=== PATIENT | male | born 1955 | race Caucasian/White ===

== ENCOUNTER 2020-09-02 07:53 | Emergency (ER) | payer MEDICARE ==
[2020-09-02] MEDS: Ketorolac 30 MG/ML SDV IVPUSH ONE (09:32)
[2020-09-02] MEDS: Ketorolac 30 MG/ML SDV ONE (09:33)
[2020-09-02] MEDS: Sodium Chloride 0.9% 1,000 ML IV SCH (09:36)
[2020-09-02] MEDS: Meropenem 500 MG in Sodium Chloride 0.9% 100 ML IV SCH (09:47)
[2020-09-02] MEDS: Sulfamethoxazole/Trimethoprim 800-160 MG Tab PO ONE (10:53)
--- NOTE | 2020-09-02 11:03 | EDM.PDOC ---
ED HPI GENERAL MEDICAL PROBLEM - General Chief Complaint: Skin Complaint Stated Complaint: ABCESS ON BUTTOCK Time Seen by Provider: 09/02/20 09:20 Source of Information: Reports: Patient History Limitations: Reports: No Limitations - History of Present Illness INITIAL COMMENTS - FREE TEXT/NARRATIVE: Mr. Guerrero is here for exacerbation of chronic perianal abscess. He has met with a general surgeon and plans to have it treated soon. He has medical history of HTN. He has taken some Advil at home for his symptoms. Skin is clean and dry with erythema. Area feels firm and non fluctuant. He no has no Fever, No N or V or D. No abdominal pain. Lungs are CTA, normal HRR. 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: NSAIDS Right Buttock Pain Score (Numeric/FACES): 4 - Related Data Allergies Allergy/AdvReac Type Severity Reaction Status Date / Time No Known Allergies Allergy Verified 09/02/20 08:37 Home Meds: Home Meds amLODIPine Besylate [Norvasc] 10 mg PO DAILY 09/02/20 [History] Past Medical History Cardiovascular History: Reports: Hypertension Social & Family History - Tobacco Use Years of Tobacco use: 45 Packs/Tins Daily: 1 - Caffeine Use Caffeine Use: Reports: Coffee - Recreational Drug Use Recreational Drug Use: No ED ROS GENERAL - Review of Systems Review Of Systems: Comprehensive ROS is negative, except as noted in HPI. Skin: Reports: Dryness, Erythema, Change in Color, Lesions ED EXAM, GENERAL - Physical Exam Exam: See Below Exam Limited By: No Limitations General Appearance: Alert, Mild Distress Eye Exam: Bilateral Eye: PERRL Nose: Normal Inspection, Normal Mucosa, No Blood Throat/Mouth: Normal Inspection, Normal Teeth Head: Atraumatic, Normocephalic Neck: Normal Inspection, Supple, Non-Tender Respiratory/Chest: No Respiratory Distress, Lungs Clear Cardiovascular: Normal Peripheral Pulses, Regular Rate, Rhythm, No Edema Peripheral Pulses: 2+: Radial (L), Radial (R) GI/Abdominal: Normal Bowel Sounds, Soft, Non-Tender (Male) Exam: No Hernia Back Exam: Normal Inspection, Full Range of Motion Extremities: Normal Inspection, Normal Range of Motion Neurological: Alert, Oriented, CN II-XII Intact Psychiatric: Normal Affect, Normal Mood Skin Exam: Warm, Dry, Erythema, Wound/Incision (abscess) Lymphatic: Other (neck feels full no distinct adenopathy) Course - Vital Signs Last Recorded V/S: Last Vital Signs Temp 37.0 C 09/02/20 10:18 Pulse 67 09/02/20 10:18 Resp 18 09/02/20 10:18 BP 130/90 09/02/20 10:18 Pulse Ox 98 09/02/20 10:18 - Orders/Labs/Meds Labs: Laboratory Tests 09/02/20 09/02/20 09/02/20 Range/Units 08:48 08:48 09:00 WBC 14.6 H (4.0-11.0) K/uL RBC 4.91 (4.50-6.50) M/uL Hgb 14.9 (13.0-18.0) g/dL Hct 43.7 (40.0-54.0) % MCV 89 (76-96) fL MCH 30.3 (27.0-32.0) pg MCHC 34.1 (31.0-35.0) g/dL RDW 13.9 (11.0-16.0) % Plt Count 183 (150-400) K/uL MPV 9.8 (6.0-10.0) fL Neut % (Auto) 75.3 H (45.0-70.0) % Lymph % (Auto) 12.9 L (20.0-40.0) % [place] % (Auto) 10.3 H (3.0-10.0) % Eos % (Auto) 1.3 (1.0-5.0) % Baso % (Auto) 0.2 (0.0-0.5) % Neut # (Auto) 10.96 H (2.00-7.50) K/uL Lymph # (Auto) 1.88 (1.50-4.00) K/uL [place] # (Auto) 1.50 H (0.20-0.80) K/uL Eos # (Auto) 0.19 (0.04-0.40) K/uL Baso # (Auto) 0.03 (0.02-0.10) K/uL D-Dimer, Quantitative (0-400) ng/mL Sodium 139 (136-145) mmol/L Potassium 3.8 (3.5-5.1) mmol/L Chloride 104 (98-107) mmol/L Carbon Dioxide 24.0 (21.0-32.0) mmol/L Anion Gap 14.8 (5.0-15.0) mmol/L BUN 16 (8-26) mg/dL Creatinine 1.17 (0.70-1.30) mg/dL Est Cr Clr Drug Dosing 73.18 mL/min Estimated GFR (MDRD) > 60 (>60) MLS/MIN BUN/Creatinine Ratio 13.7 (6-25) Glucose 103 H (74-100) mg/dL Lactic Acid 0.5 (0.4-2.0) mmol/L Calcium 8.4 L (8.5-10.1) mg/dL Total Bilirubin 0.8 (0.0-1.0) mg/dL AST 24 (15-37) U/L ALT 31 (12-78) U/L Alkaline Phosphatase 73 (46-116) U/L C-Reactive Protein (0.0-3.0) mg/L Total Protein 7.0 (6.4-8.2) g/dL Albumin 3.3 L (3.4-5.0) g/dL Globulin 3.7 (2.2-4.2) g/dL Albumin/Globulin Ratio 0.9 (0.8-2.0) 09/02/20 09/02/20 Range/Units 09:00 09:00 WBC (4.0-11.0) K/uL RBC (4.50-6.50) M/uL Hgb (13.0-18.0) g/dL Hct (40.0-54.0) % MCV (76-96) fL MCH (27.0-32.0) pg MCHC (31.0-35.0) g/dL RDW (11.0-16.0) % Plt Count (150-400) K/uL MPV (6.0-10.0) fL Neut % (Auto) (45.0-70.0) % Lymph % (Auto) (20.0-40.0) % [place] % (Auto) (3.0-10.0) % Eos % (Auto) (1.0-5.0) % Baso % (Auto) (0.0-0.5) % Neut # (Auto) (2.00-7.50) K/uL Lymph # (Auto) (1.50-4.00) K/uL [place] # (Auto) (0.20-0.80) K/uL Eos # (Auto) (0.04-0.40) K/uL Baso # (Auto) (0.02-0.10) K/uL D-Dimer, Quantitative 904 H (0-400) ng/mL Sodium (136-145) mmol/L Potassium (3.5-5.1) mmol/L Chloride (98-107) mmol/L Carbon Dioxide (21.0-32.0) mmol/L Anion Gap (5.0-15.0) mmol/L BUN (8-26) mg/dL Creatinine (0.70-1.30) mg/dL Est Cr Clr Drug Dosing mL/min Estimated GFR (MDRD) (>60) MLS/MIN BUN/Creatinine Ratio (6-25) Glucose (74-100) mg/dL Lactic Acid (0.4-2.0) mmol/L Calcium (8.5-10.1) mg/dL Total Bilirubin (0.0-1.0) mg/dL AST (15-37) U/L ALT (12-78) U/L Alkaline Phosphatase (46-116) U/L C-Reactive Protein 63.4 H (0.0-3.0) mg/L Total Protein (6.4-8.2) g/dL Albumin (3.4-5.0) g/dL Globulin (2.2-4.2) g/dL Albumin/Globulin Ratio (0.8-2.0) Meds: Medications Discontinued Medications Generic Name Dose Route Start Last Admin Trade Name Freq PRN Reason Stop Dose Admin Sodium Chloride 1,000 mls @ 125 mls/hr 09/02/20 09:45 09/02/20 09:36 Normal Saline IV 125 mls/hr ASDIRECTED PADMINI Administration Meropenem 500 mg/ Sodium 100 mls @ 200 mls/hr 09/02/20 09:45 09/02/20 09:47 Chloride IV 200 mls/hr Q8H PADMINI Administration Vancomycin HCl 500 mg/ Sodium 100 mls @ 100 mls/hr 09/02/20 10:35 09/02/20 10:54 Chloride IV 09/02/20 10:36 Not Given ONETIME ONE Vancomycin HCl 1 gm/ Sodium 250 mls @ 167 mls/hr 09/02/20 10:54 09/02/20 10:59 Chloride IV 09/02/20 12:23 167 mls/hr ONETIME ONE Administration Ketorolac Tromethamine 30 mg 09/02/20 09:29 09/02/20 09:32 Toradol IVPUSH 09/02/20 09:30 30 mg ONETIME ONE Administration Ketorolac Tromethamine Confirm 09/02/20 09:40 09/02/20 09:33 Toradol Administered 09/02/20 09:41 Not Given Dose 30 mg .ROUTE .STK-MED ONE Trimethoprim/Sulfamethoxazole 2 tab 09/02/20 10:36 09/02/20 10:53 Septra Ds PO 09/02/20 10:37 2 tab ONETIME ONE Administration Departure - Departure Time of Disposition: 13:00 Disposition: Home, Self-Care 01 Condition: Fair Clinical Impression: Perianal abscess, Abscess - Discharge Information *PRESCRIPTION DRUG MONITORING PROGRAM REVIEWED*: Not Applicable *COPY OF PRESCRIPTION DRUG MONITORING REPORT IN PATIENT SAM: Not Applicable Instructions: Pilonidal Cyst Referrals: PCP,None [Primary Care Provider] - Forms: ED Department Discharge, ED Department Discharge Additional Instructions: Home regimen of Bactrim for 14days FU with General Surgery Friday Take Tylenol 3 for pain Keep area clean and dry Return to ED for new or worsening symptoms Sepsis Event Note (ED) - Evaluation Sepsis Screening Result: No Definite Risk - Assessment/Plan Assessment:: Rt Perianal abscess Plan: Meropenem Vancomycin 2 Bactrim DS Home regimen od Bactrim for 14days FU with General Surgery Friday
[2020-09-02] MEDS ORDERED: Sulfamethoxazole/Trimethoprim 800-160 MG Tab ONE (12:00)
[2020-09-02] MEDS ORDERED: Acetaminophen/Codeine 300-30 MG Tab ONE (12:00)
--- NOTE | 2020-09-02 15:09 | CT ---
CLINICAL DATA: Cellulitis. UNENHANCED ABDOMEN AND PELVIC CT, 02 SEPTEMBER 2020: Multislice axial acquisition without IV or oral contrast was performed. No priors. The lung bases are clear. The heart size is normal. The unenhanced liver appears normal. No focal hepatic lesions. There are multiple rim-calcified gallstones noted within the gallbladder. No gallbladder wall thickening. No pericholecystic fluid. The spleen appears normal. The pancreas appears normal. The right and left adrenals appear normal. There is a 1.5 cm low-density lesion in the upper pole of the right kidney, most likely representing a cyst. No nephrocalcinosis or nephrolithiasis. No hydronephrosis or hydroureter. There is also a small low-density lesion in the upper pole of the left kidney, most likely representing a cyst. The bladder is partially fluid-filled. It appears normal. The prostate is enlarged. There are calcifications within the prostate, consistent with chronic prostatitis. The appendix is not dilated. No evidence of appendicitis. There are scattered air-fluid levels in the small bowel. No dilated loops of bowel. Enteritis should be considered. There is diverticulosis of the colon. No evidence of diverticulitis. There is a 7.1 cm oval-shaped near-fluid density collection in the right gluteal region. It has a soft tissue rim and there is fat stranding of the adjacent fat. This is consistent with an abscess. There is a small fat-containing umbilical hernia. There is degenerative disk disease throughout the lower thoracic and lumbar spine. There are multiple lymph nodes in the inguinal regions bilaterally. There are multiple enlarged lymph nodes in the right inguinal region. These may be reactive. Follow up is recommended. There is a lytic lesion in the L1 vertebra with vertical striations, consistent with a benign hemangioma. IMPRESSION: 1. Right-sided perianal mass consistent with an abscess. Cholelithiasis. 2. Multiple other findings, as discussed above. The patient's physician was notified of the findings by [facility] preliminary radiology report. Job: [id number] [facility]
== END 2020-09-02 13:00 | disposition home or self-care (01) ==
LOC: LB.ED 07:53
DX: K61.0 Anal abscess (principal); I10 Essential (primary) hypertension; Z72.0 Tobacco use; Z79.899 Other long term (current) drug therapy
CPT/HCPCS: 36415; 74176; 80053; 83605; 85025; 85379; 86140; 96365; 96366; 96367; 96375; 99284; A9270; J1885; J2185; J3370; J7030; J7050